=== PATIENT | female | born 1970 | race Caucasian/White ===

== ENCOUNTER 2020-03-17 18:38 | Emergency (ER) | payer SELFPAY ==
[2020-03-17 18:41] VITALS: BP 155/96; PULSE 94; RESP 18; TEMP 36.2; O2SAT 100; BMI 32.3
--- NOTE | 2020-03-17 18:56 | W.ED.FEMALGU ---
Documented by User: GALI Rios 03/17/20 18:57 HPI - Female Genitourinary General: Chief complaint: Urogenital-Female Stated complaint: General Medical Time Seen by Provider: 03/17/20 18:46 History of Present Illness: HPI Narrative: Patient complains about the bilateral flank pain been going on since early this morning. Has been nauseous and vomiting she said over the last couple months. She has had pressure down in her vaginal area which really started a while ago and now gone and now she is having urinary frequency. MD elicited complaint: UTI and flank pain Onset (ago): day(s) Severity scale (1-10): 6 Quality of pain: sharp Consistency: constant and progressively worsening Vaginal discharge: none Vaginal bleeding: none Urinary symptoms: Foul Smelling Urine, Frequency and Urgency Associated symptoms: Reports nausea; Deny headache(s) Treatment prior to arrival: none Review of Systems Const: Denies: fever(s), chills or body aches Eyes: Denies: change in vision or blurry vision ENMT: Denies: throat pain or nasal congestion Card: Denies: chest pain or dyspnea on exertion Resp: Denies: dyspnea, productive cough or non-productive cough GI: Reports: nausea Musc: Denies: extremity pain Skin/Breast: Denies: rash Neuro: Denies: headache(s) Psych: Denies: anxiety or depression Braden/Lymph: Denies: easy bruising Physical Exam Const: COMMON NORMALS: no acute distress, average body habitus and patient oriented x3 HENMT: COMMON NORMALS: normocephalic HEAD & SCALP: normal to inspection and normocephalic FACE & SINUS: normal facial exam Eye: COMMON NORMALS: conjunctivae normal GENERAL EYE: appearance normal, both eyes and all related structures CONJUNCTIVA: Yes conjunctivae normal Neck/C-Spine: COMMON NORMALS: no JVD Chest: COMMONS NORMALS: normal inspection of the chest Resp: COMMON NORMALS: normal respiratory effort and clear to auscultation bilaterally AUSCULTATION: clear to auscultation bilaterally Cardio: COMMON NORMALS: no JVD, regular rate and regular rhythm RATE: regular rate RHYTHM: regular rhythm GI: COMMON NORMALS: Normal to inspection, nondistended, normoactive bowel sounds present OTHER: Bilateral flank pain Extremity: COMMON NORMALS: normal to inspection and full ROM Neuro: COMMON NORMALS: patient oriented x3 Course Vital Signs: Vital signs: Vital Signs Temperature 97.2 F L 03/17/20 18:41 Pulse Rate 94 03/17/20 18:41 Respiratory Rate 18 03/17/20 18:41 Blood Pressure 155/96 03/17/20 18:41 Pulse Oximetry 100 03/17/20 18:41 Discharge Plan Discharge Prescriptions: No Action lisinopril 20 mg Tablet 20 mg PO BID RF: 0 ibuprofen 200 mg Tablet 800 mg PO PRN RF: 0 Black Cohosh Hot Flash 2 tab PO DAILY RF: 0 Coding Level of Care Code ED Dry Wall 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 for [facility] Fwd Exam Comprehensive Documented by User: Xenia Matamoros 03/17/20 19:18 HPI - Female Genitourinary General: Chief complaint: Urogenital-Female Stated complaint: General Medical Time Seen by Provider: 03/17/20 18:46 Physical Exam Neuro: ANGELINE COMA SCALE: document GCS findings Course Vital Signs: Vital signs: Vital Signs Temperature 97.2 F L 03/17/20 18:41 Pulse Rate 94 03/17/20 18:41 Respiratory Rate 18 03/17/20 18:41 Blood Pressure 155/96 03/17/20 18:41 Pulse Oximetry 100 03/17/20 18:41 Discharge Plan Discharge Prescriptions: No Action lisinopril 20 mg Tablet 20 mg PO BID RF: 0 ibuprofen 200 mg Tablet 800 mg PO PRN RF: 0 Black Cohosh Hot Flash 2 tab PO DAILY RF: 0 Coding Level of Care Code ED Dry Wall Plasterer for g Fwd Exam Comprehensive
[2020-03-17 19:22] LABS: Urine Appearance Hazy (CLEAR); Urine Color Dark Yellow (Yellow); pH Urine 5 (5-7)
[2020-03-17 19:23] LABS: Add Urine Microscopic? YES; Bilirubin Urine Neg (Negative); Blood Urine 3+ (Negative); Glucose Urine UA Norm (Normal); Ketones Urine Negative (Negative); Leukocyte Esterase Urine Negative (Negative); Nitrate Urine Negative (Negative); Protein Urine Neg (Negative); Urobilinogen Urine Norm (Negative)
[2020-03-17] MEDS: ondansetron 2 mg/ML SDV 2 mL 4 MG IVP (19:39)
[2020-03-17] MEDS: sodium chloride 0.9% 1,000 ML 999 ML IV ×2 (19:40→20:43)
[2020-03-17] MEDS: phenazopyridine 100 mg Tablet 200 MG PO (19:40)
[2020-03-17 19:42] VITALS: BP 123/97; PULSE 76; RESP 18; O2SAT 99
[2020-03-17 19:51] LABS: Add Urine Culture? No; Bacteria Urine 1+ /hpf; Mucus Urine 3+ /hpf; Squamous Epithelial Cell Urine 25-40 /hpf (0-5)
[2020-03-17 20:01] LABS: Basophils # 0.1 10^3/uL (0.0-0.1); Basophils % 0.9 %; Eosinophils # 0.2 10^3/uL (0.0-0.8); Eosinophils % 1.6 %; Hematocrit 40.8 % (37.0-47.0); Hemoglobin 13.4 g/dL (11.5-15.3); Lymphocytes # 3.3 10^3/uL (0.8-4.8); Lymphocytes % 30.3 %; Mean Corpuscular HGB Conc 32.8 g/dL (30.0-36.0); Mean Corpuscular Hemoglobin 28.2 pg (28.0-34.0); Mean Corpuscular Volume 85.7 fL (81-99); Monocytes # 0.6 10^3/uL (0.2-0.9); Monocytes % 5.5 %; Neutrophils # 6.63 10^3/uL (1.8-7.7); Neutrophils % 61.3 %; Nucleated Red Blood Cells % 0 %; Platelet Count 318 10^3/cmm (130-400); Red Blood Count 4.76 10^6/uL (4.1-5.3); Red Cell Distribution Width 14.2 % (12.1-15.1); White Blood Count 10.8 10^3/uL (4.0-10.0)
[2020-03-17 20:15] LABS: Alanine Aminotransferase 11 U/L (0-33); Alkaline Phosphatase 95 IU/L (35-105); Anion Gap 13.6 (5-19); Aspartate Amino Transferase 11 U/L (0-32); Blood Urea Nitrogen 13 mg/dL (6-20); Calcium 9.2 mg/dL (8.5-10.5); Carbon Dioxide 24 mmol/L (22-29); Chloride 108 mmol/L (98-107); Glomerular Filtration Rate 66.5 mL/min (90-130); Glucose 117 mg/dL (65-115); Lipase 22 U/L (13-60); Osmolality Calculated 295 mOsm/kg (285-295); Potassium 3.6 mmol/L (3.5-5.1); Sodium 142 mmol/L (136-145); Total Bilirubin 0.2 mg/dL (0.15-1.2)
--- NOTE | 2020-03-17 20:37 | CTR_ITS ---
PROCEDURE INFORMATION: Exam: CT Abdomen And Pelvis Without Contrast Exam date and time: 03/17/2020 8:58 PM Age: 49 years old Clinical indication: Abdominal pain; Prior surgery; Surgery type: Hernia, hyst; Additional info: Flank pain TECHNIQUE: Imaging protocol: Computed tomography of the abdomen and pelvis without contrast. Radiation optimization: All CT scans at this facility use at least one of these dose optimization techniques: automated exposure control; mA and/or kV adjustment per patient size (includes targeted exams where dose is matched to clinical indication); or iterative reconstruction. COMPARISON: No relevant prior studies available. RADIATION DOSE METRICS: Total DLP (mGy-cm): 1746.01 FINDINGS: Lungs: Limited assessment of the lung bases fails to reveal evidence for active cardiopulmonary process. Liver: Unremarkable. No mass. Gallbladder and bile ducts: Gallbladder is contracted. No visible cholelithiasis. Pancreas: Normal. No ductal dilation. Spleen: Normal. No splenomegaly. Adrenal glands: Normal. No mass. Kidneys and ureters: No visible hydronephrosis, hydroureter, ureterolithiasis, nephrolithiasis, or nephrocalcinosis. Stomach and bowel: Diverticulosis coli without visible evidence for acute diverticulitis. Nonobstructive bowel pattern. No visible adynamic or reactive ileus. Appendix: The appendix is visualized and appears noninflamed. Intraperitoneal space: No visible evidence of mesenteric lymphadenitis or active mesenteritis/panniculitis. Vasculature: Unremarkable. No abdominal aortic aneurysm. Lymph nodes: No current visible evidence of active mesenteric or retroperitoneal lymphadenopathy. Urinary bladder: Unremarkable as visualized. Reproductive: Status post hysterectomy. Bones/joints: No visible active or acute osseous pathology. Mild degenerative disease of the spine. Facet arthrosis. Limbus vertebra L5. Soft tissues: Small ventral hernia containing fat only. Other findings: Obesity. CT/CT kidney stone 64812 IMPRESSION: 1. Currently no visible evidence of acute abdominal or pelvic pathologic process. 2. No visible hydronephrosis, hydroureter, ureterolithiasis, nephrolithiasis, or nephrocalcinosis. 3. Diverticulosis coli without evidence for acute diverticulitis. 4. The appendix is visualized and appears noninflamed. Radiation Dose CTDIVOL = (mGy): DLP = 1746.01 (mGy-cm)
[2020-03-17] MEDS: HYDROcodone-acetaminophen 7.5-325 mg Tablet 1 TAB PO (20:43)
[2020-03-17 20:44] VITALS: BP 146/97; PULSE 78; RESP 20; O2SAT 99
[2020-03-17 21:41] VITALS: BP 134/86; PULSE 74; RESP 18; O2SAT 97
[2020-03-17] MEDS: nitrofurantoin SR (BID) 100 mg Capsule PO (21:55)
== END 2020-03-17 22:03 | disposition home or self-care (01) ==
PROVIDERS: Emergency Provider Nurse Practitioner Family
DX: R10.9 Unspecified abdominal pain (principal)
CPT/HCPCS: 12345; 74176; 80053; 81001; 83690; 85025; 96361; 96374; 96375; 99283; J2405; J7030

== ENCOUNTER 2020-09-15 02:00 | Emergency (ER) | payer SELFPAY ==
[2020-09-15 02:02] VITALS: BP 182/118; PULSE 86; RESP 20; TEMP 36.8; O2SAT 97; BMI 31.4
--- NOTE | 2020-09-15 02:11 | ED_ITS ---
HPI - Animal Bite General: Chief Complaint: Animal Bite Stated Complaint: Tick Bite Time Seen by Provider: 09/15/20 02:05 Source: patient Mode of arrival: ambulatory Limitations: no limitations History of Present Illness: HPI narrative: 50-year-old female states she had a tick bite to her left hand 3 days ago. States she pulled the tick off and had increased swelling and pain. She denies any fevers has had some slight body aches. Denies any worsening proving factors. Associated symptoms: Deny chills, fever(s) or headache(s) Review of Systems Const: Denies: fever(s), chills, body aches or change in appetite Eyes: Denies: blurry vision or eye discomfort ENMT: Denies: throat pain or dental pain Card: Denies: chest pain Resp: Denies: dyspnea GI: Denies: abdominal pain, nausea, vomiting or diarrhea : Denies: dysuria Musc: Denies: neck pain or back pain Skin/Breast: Denies: rash Neuro: Denies: headache(s) Psych: Denies: depression Braden/Lymph: Denies: easy bruising All/Imm: Denies: urticaria Physical Exam Const: COMMON NORMALS: no acute distress, patient oriented x3 and healthy appearing HENMT: COMMON NORMALS: normocephalic and atraumatic HEAD & SCALP: normocephalic and atraumatic Eye: COMMON NORMALS: Equal, round and reactive pupils present and EOMs intact bilaterally PUPIL: Yes Equal, round and reactive pupils present Neck/C-Spine: COMMON NORMALS: full ROM and supple Chest: COMMONS NORMALS: normal inspection of the chest and normal palpation of entire chest wall Resp: COMMON NORMALS: normal respiratory effort, No retractions, No use of accessory muscles and clear to auscultation bilaterally AUSCULTATION: clear to auscultation bilaterally Cardio: COMMON NORMALS: regular rate, regular rhythm and No murmurs present (Cardio) RATE: regular rate RHYTHM: regular rhythm GI: COMMON NORMALS: Normal to inspection, nondistended, normoactive bowel sounds present, Soft to palpation, non-tender and no masses PALPATION: Yes Soft to palpation Extremity: COMMON NORMALS: normal to inspection and full ROM Neuro: COMMON NORMALS: patient oriented x3, moves all extremities and no focal motor deficits Psych: COMMON NORMALS: mental status grossly normal, Normal thought process present and cooperative THOUGHT PROCESS: Normal thought process present Skin: COMMON NORMALS: no rashes or lesions noted and no wounds NARRATIVE SKIN EXAM: Tick bite noted to left hand at the base of the index finger with slight erythema around it no abscess formation GENERAL SKIN EXAM: no rashes or lesions noted Course Vital Signs: Vital signs: Vital Signs Temperature 98.3 F 09/15/20 02:02 Pulse Rate 86 09/15/20 02:02 Respiratory Rate 20 H 09/15/20 02:02 Blood Pressure 182/118 09/15/20 02:02 Pulse Oximetry 97 09/15/20 02:02 MDM - Animal Bite MDM Narrative: Medical decision making narrative: Patient presents with a tick bite. She has had some body aches and swelling around the area. We will place her on doxycycline and get a tick panel. She is to follow-up PCP and return if worsening. Discharge Plan Discharge Patient Disposition: Home Clinical Impression: Tick bite Qualifiers: Encounter type: initial encounter Qualified Code(s): W57.XXXA - Bitten or stung by nonvenomous insect and other nonvenomous arthropods, initial encounter Condition: Stable Prescriptions: New doxycycline hyclate 100 mg capsule 100 mg PO BID 10 Days Qty: 20 RF: 0 naproxen [Naprosyn] 500 mg tablet 500 mg PO BID PRN (Reason: pain) Qty: 20 RF: 0 No Action lisinopril 20 mg Tablet 20 mg PO BID RF: 0 ibuprofen 200 mg Tablet 800 mg PO PRN RF: 0 Black Cohosh Hot Flash 2 tab PO DAILY RF: 0 tramadol 50 mg tablet 50 mg PO Q8H PRN (Reason: pain) Qty: 7 RF: 0 Discharge Orders: Discharge ED (Routine); Ordered 09/15/20 Ordered By: Misty Elkins Discharge Diet: Advance as tolerated Discharge Activity: Resume usual activity Patient Instructions: Tick Bite (ED) Coding Level of Care Code ED Drive Thru Order Taker for [facility] Cantu
[2020-09-15] MEDS: HYDROcodone-acetaminophen 5-325 mg Tablet 1 TAB PO (02:15)
[2020-09-15] MEDS: doxycycline 100 mg Tablet PO (02:15)
[2020-09-15 02:24] VITALS: BP 131/98; PULSE 82; RESP 18; O2SAT 98
[2020-09-16 13:03] LABS: Lyme AB Screen <0.90 index
[2020-09-22 16:52] LABS: E. Chaffeensis AB IGG <1:64; E. Chaffeensis AB IGM <1:20; RMSF IGG NOT DETECTED; RMSF IGM NOT DETECTED
== END 2020-09-15 02:25 | disposition home or self-care (01) ==
PROVIDERS: Emergency Provider Emergency Medicine
DX: S60.562A Insect bite (nonvenomous) of left hand, initial encounter (principal); W57.XXXA Bitten or stung by nonvenomous insect and other nonvenomous arthropods, initial encounter
CPT/HCPCS: 86618; 86666; 86757; 99283

== ENCOUNTER 2020-11-18 18:25 | Emergency (ER) | payer SELFPAY ==
--- NOTE | 2020-11-18 18:29 | ECG_ITS ---
[facility] Test Date: 2020-11-18 Pat Name: Tiffany Bragg Department: Room: Gender: Female Communications Agent: : 1970 Requested By: Juan Rodriguez Order Number: [id number] Nila MD: Bo Giles M.D. Measurements Intervals [place] Rate: 74 P: 7 PA: 146 QRS: -6 QRSD: 81 T: 122 QT: 415 QTc: 461 Interpretive Statements SINUS RHYTHM MODERATE T-WAVE ABNORMALITY, CONSIDER LATERAL ISCHEMIA [-0.1+ mV T WAVE IN I/aVL/V5/V6] No previous ECG available for comparison Electronically Signed On 11-20-2020 12:20:25 CDT by Bo Giles M.D. [email or web address]/[id number] f
[2020-11-18 18:30] VITALS: BP 134/83; PULSE 75; RESP 18; TEMP 37.1; O2SAT 97; BMI 33.3
[2020-11-18 19:03] LABS: Basophils # 0.1 10^3/uL (0.0-0.1); Basophils % 0.6 %; Eosinophils % 0.2 %; Hematocrit 39.9 % (37.0-47.0); Hemoglobin 12.5 g/dL (11.5-15.3); Lymphocytes % 22.4 %; Mean Corpuscular HGB Conc 31.3 g/dL (30.0-36.0); Mean Corpuscular Hemoglobin 27.7 pg (28.0-34.0); Mean Corpuscular Volume 88.5 fL (81-99); Mean Platelet Volume 10.9 fL (7.4-10.4); Monocytes # 0.8 10^3/uL (0.2-0.9); Neutrophils # 6.04 10^3/uL (1.8-7.7); Neutrophils % 67.6 %; Nucleated Red Blood Cells % 0 %; Platelet Count 271 10^3/cmm (130-400); Red Blood Count 4.51 10^6/uL (4.1-5.3); Red Cell Distribution Width 15.7 % (12.1-15.1); White Blood Count 8.9 10^3/uL (4.0-10.0)
[2020-11-18 19:21] LABS: Troponin(5th) Baseline 76 ng/L (0-10)
[2020-11-18 19:23] LABS: Alanine Aminotransferase 14 U/L (0-33); Albumin Level 3.5 g/dL (3.5-5.2); Alkaline Phosphatase 86 IU/L (35-105); Aspartate Amino Transferase 20 U/L (0-32); Blood Urea Nitrogen 13 mg/dL (6-20); Calcium 8.1 mg/dL (8.5-10.5); Carbon Dioxide 20 mmol/L (22-29); Chloride 107 mmol/L (98-107); Globulin 3.5 g/dL (1.3-4.6); Glomerular Filtration Rate 88.6 mL/min (90-130); Glucose 90 mg/dL (65-115); Osmolality Calculated 288 mOsm/kg (285-295); Sodium 139 mmol/L (136-145); Total Bilirubin 0.2 mg/dL (0.15-1.2)
== END 2020-11-18 20:14 ==
LOC: ER 18:37
PROVIDERS: Nurse Practitioner Family; Emergency Provider Emergency Medicine
DX: Z53.21 Procedure and treatment not carried out due to patient leaving prior to being seen by health care provider (principal)
CPT/HCPCS: 36415; 80053; 84484; 85025; 93005

== ENCOUNTER 2021-12-10 02:59 | Emergency (ER) | payer MEDICAID, SELFPAY ==
[2021-12-10 03:04] VITALS: BP 187/103; PULSE 68; RESP 18; TEMP 36.8; O2SAT 98; BMI 29.2
[2021-12-10 03:48] VITALS: BP 187/103; PULSE 68; RESP 18; TEMP 36.8; O2SAT 98
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
== END 2021-12-10 04:09 | disposition home or self-care (01) ==
PROVIDERS: Emergency Provider Emergency Medicine
DX: Z03.89 Encounter for observation for other suspected diseases and conditions ruled out (principal)
CPT/HCPCS: 99283

== ENCOUNTER → 2023-06-27 14:14 | Outpatient (BNVA) | payer MEDICAID, SELFPAY | PROVIDERS: Visit Provider Emergency Medicine | DX: R07.9 Chest pain, unspecified (principal) | CPT/HCPCS: 93005 ==

== ENCOUNTER 2024-02-28 10:42 | Emergency (ER) | payer MEDICAID, SELFPAY ==
--- NOTE | 2024-02-28 10:46 | ECG_ITS ---
[facility] Date: 2024-02-28 Pat Name: Tiffany Bragg Department: Room: Gender: Female Mason Helper: : 1970 Requested By: Misty Elkins Order Number: [id number] Nila MD: Carmela Galvan M.D. Measurements Intervals [place] Rate: 65 P: 0 MO: 169 QRS: 32 QRSD: 73 T: 61 QT: 420 QTc: 437 Interpretive Statements SINUS RHYTHM Compared to ECG 11/18/2020 18:47:07 T-wave abnormality no longer present Possible ischemia no longer present Electronically Signed On 02-29-2024 15:57:21 FISCAL TECHNICIAN by Carmela Galvan M.D. [id number] f
[2024-02-28 10:50] VITALS: BP 116/110; PULSE 63; RESP 17; TEMP 36.8; O2SAT 99; BMI 29.8
== END 2024-02-28 11:15 | disposition left against medical advice (07) ==
PROVIDERS: Emergency Provider Family Medicine; PCP Family Medicine
DX: Z53.21 Procedure and treatment not carried out due to patient leaving prior to being seen by health care provider (principal); R07.89 Other chest pain
CPT/HCPCS: 93005

== ENCOUNTER 2024-03-03 07:14 | Emergency (ER) | payer MEDICAID, SELFPAY ==
[2024-03-03 07:19] VITALS: BP 186/108; PULSE 77; RESP 18; TEMP 36.7; O2SAT 99; BMI 28.1
--- NOTE | 2024-03-03 07:30 | ECG_ITS ---
[facility] Test Date: 2024-03-03 Pat Name: Tiffany Bragg Department: Room: Gender: Female Undergraduate Internship: : 1970 Requested By: Tan Avila Order Number: [id number] Reading MD: NIRMAL MENA Measurements Intervals [place] Rate: 70 P: -7 NM: 166 QRS: -6 QRSD: 72 T: 32 QT: 391 QTc: 424 Interpretive Statements SINUS RHYTHM MODERATE VOLTAGE CRITERIA FOR LVH, CONSIDER NORMAL VARIANT [MEETS CRITERIA IN ONE OF: R(aVL), S(V1), R(V5), R(V5/V6)+S(V1)] Compared to ECG 02/28/2024 10:46:37 No significant changes Electronically Signed On 03-04-2024 17:34:38 GINSENG FARMER by NIRMAL MENA [id number]
--- NOTE | 2024-03-03 07:41 | W.ED.GENADLT ---
HPI - General Adult General: Chief complaint: General Medical Stated complaint: BP high, blurred vison head vomiting Time Seen by Provider: 03/03/24 07:21 History of Present Illness: 53-year-old female presents emergency room with elevated blood pressure. She states she generally feels like crap she has a headache. She states she has had high blood pressure for several months she has been taking lisinopril and clonidine but has difficult time keeping them down is not controlling her blood pressure. She vomited last night after she took her dose she has not taken another dose since then. Patient states she had COVID 4 years ago and had not heart attack while she was here in this hospital but there is no evidence of records reflecting that on review of her chart. I cannot find a angiogram or hospitalization for chest pain rule out or heart attack. Associated symptoms: Deny chest pain, dyspnea or rash Related Data Home Medications Medication Instructions Recorded Confirmed lisinopril 20 mg tablet 20 mg PO BID 03/17/20 03/03/24 albuterol sulfate 90 mcg/actuation 2 puff inhalation Q6H PRN 03/03/24 03/03/24 aerosol inhaler Shortness Of Breath Or Wheezing Previous Rx's Medication Instructions Recorded amlodipine 5 mg tablet 5 mg PO DAILY #30 tabs 03/03/24 metoprolol succinate 25 mg 12.5 mg (1/2 x 25 mg) PO DAILY #15 03/03/24 tablet,extended release 24 hr tabs (Toprol XL) Allergies Allergy/AdvReac Type Severity Reaction Status Date / Time cephalexin [From Keflex] Allergy Unknown Verified 02/28/24 10:54 Penicillins Allergy ALGY-Anaphy Verified 02/28/24 10:54 laxis Sulfa (Sulfonamide Allergy ALGY-Anaphy Verified 02/28/24 10:54 Antibiotics) laxis sulfamethoxazole Allergy Unknown Verified 02/28/24 10:54 [From Bactrim] trimethoprim [From Bactrim] Allergy Unknown Verified 02/28/24 10:54 Review of Systems Const: Denies: fever(s) or chills Card: Denies: chest pain Resp: Denies: dyspnea GI: Denies: abdominal pain : Denies: dysuria, urinary frequency or urinary urgency Musc: Denies: neck pain or back pain Skin/Breast: Denies: rash PFSH ED PFSH: Medical History (Updated 03/03/24 @ 11:51 by Tan Flynn DO) HTN (hypertension) Psychiatric care Social History Smoking and tobacco/nicotine status: current every day tobacco/nicotine user Physical Exam Const: GENERAL APPEARANCE: cooperative ORIENTATION/CONSCIOUSNESS: Yes awake, Yes oriented to person, Yes oriented to place and Yes oriented to time HENMT: COMMON NORMALS: normocephalic, atraumatic and hearing grossly normal bilaterally HEAD & SCALP: normocephalic and atraumatic Resp: COMMON NORMALS: normal respiratory effort, No retractions, No use of accessory muscles and clear to auscultation bilaterally AUSCULTATION: clear to auscultation bilaterally Cardio: COMMON NORMALS: regular rate, regular rhythm and No murmurs present (Cardio) RATE: regular rate RHYTHM: regular rhythm GI: COMMON NORMALS: Soft to palpation and No hepatosplenomegaly present AUSCULTATION: Yes normoactive bowel sounds PALPATION: Yes Soft to palpation, No Tenderness to palpation present (GI), No Guarding due to palpation present (GI) and Yes No hepatosplenomegaly present Extremity: COMMON NORMALS: normal to inspection, capillary refill normal, no clubbing, cyanosis or edema, no calf tenderness and no pedal edema Neuro: SENSORIUM/ORIENTATION: Yes oriented to person, Yes oriented to place and Yes oriented to time Skin: COMMON NORMALS: no rashes or lesions noted GENERAL SKIN EXAM: no rashes or lesions noted Course Vital Signs: Vital signs: Vital Signs Temperature 98.1 F 03/03/24 07:19 Pulse Rate 71 03/03/24 11:51 Respiratory Rate 18 03/03/24 07:19 Blood Pressure 128/92 03/03/24 11:51 Pulse Oximetry 98 03/03/24 11:51 Oxygen Delivery Me thod Room Air 03/03/24 07:58 [facility] - General Adult Medical Decision Making Cardiac enzymes EKG is unremarkable blood pressure improved with medications given was discharged home on amlodipine 5 mg daily Toprol-XL 12.5 daily continue lisinopril follow-up with his primary care to reevaluate blood pressure within the next 5 to 7 days Medical Records I reviewed the patient's medical records. Lab Data I reviewed the patient's lab results. 03/03/24 07:34 03/03/24 07:34 Radiology Impressions Chest X-Ray 03/03/24 11:39 IMPRESSION: 1. No acute cardiopulmonary finding. Laboratory Results WBC 11.41 10^3/uL (3.29-11.43) 03/03/24 07:34 RBC 4.88 10^6/uL (3.85-5.65) 03/03/24 07:34 Hgb 14.40 g/dL (11.27-16.99) 03/03/24 07:34 Hct 44.2 % (36-47) 03/03/24 07:34 MCV 90.6 fl (85-98) 03/03/24 07:34 MCH 29.5 pg (27-33) 03/03/24 07:34 MCHC 32.6 g/dL (30-55) 03/03/24 07:34 RDW 15.2 % (12.1-15.1) H 03/03/24 07:34 Plt Count 292 10^3/cmm (157-399) 03/03/24 07:34 MPV 9.6 fL (7.4-10.4) 03/03/24 07:34 Neut % (Auto) 63.2 % 03/03/24 07:34 Lymph % (Auto) 30.0 % 03/03/24 07:34 [place] % (Auto) 5.3 % 03/03/24 07:34 Eos % (Auto) 0.6 % 03/03/24 07:34 Baso % (Auto) 0.5 % 03/03/24 07:34 Neut # (Auto) 7.22 10^3/uL (1.8-7.7) 03/03/24 07:34 Lymph # (Auto) 3.4 10^3/uL (0.8-4.8) 03/03/24 07:34 [place] # (Auto) 0.6 10^3/uL (0.2-0.9) 03/03/24 07:34 Eos # (Auto) 0.1 10^3/uL (0.0-0.8) 03/03/24 07:34 Baso # (Auto) 0.1 10^3/uL (0.0-0.1) 03/03/24 07:34 Nucleated RBC % (auto) 0 % 03/03/24 07:34 Nucleated RBCs # 0.0 /100WBC 03/03/24 07:34 Sodium 141 mmol/L (136-145) 03/03/24 07:34 Potassium 4.0 mmol/L (3.5-5.1) 03/03/24 07:34 Chloride 106 mmol/L (98-107) 03/03/24 07:34 Carbon Dioxide 23 mmol/L (22-29) 03/03/24 07:34 Anion Gap 16.0 (5-19) 03/03/24 07:34 BUN 23 mg/dL (6-20) H 03/03/24 07:34 Creatinine 0.9 mg/dL (0.5-0.9) 03/03/24 07:34 GFR Calculation 65.5 mL/min (90-130) L 03/03/24 07:34 Glucose 104 mg/dL (65-115) 03/03/24 07:34 Calculated Osmolality 296 mOsm/kg (285-295) H 03/03/24 07:34 Calcium 8.7 mg/dL (8.5-10.5) 03/03/24 07:34 Total Bilirubin 0.2 mg/dL (0.15-1.2) 03/03/24 07:34 AST 17 U/L (0-32) 03/03/24 07:34 ALT 15 U/L (0-33) 03/03/24 07:34 Alkaline Phosphatase 107 U/L (35-105) H 03/03/24 07:34 Troponin T Baseline 9 ng/L (0-10) 03/03/24 07:34 Troponin T 120 Minute 8.07 ng/L (0-10) 03/03/24 09:39 Delta Troponin T -0.93 ABS# (0-10) L 03/03/24 09:39 Total Protein 7.4 g/dL (6.6-8.7) 03/03/24 07:34 Albumin 4.5 g/dL (3.5-5.2) 03/03/24 07:34 Globulin 2.9 g/dL (1.3-4.6) 03/03/24 07:34 All radiology interpretation(s) finalized by discharge Discharge Plan Discharge Patient Disposition: Home Clinical Impression: HTN (hypertension) Condition: Stable Prescriptions: New metoprolol succinate [Toprol XL] 25 mg tablet extended release 24 hr 12.5 mg PO DAILY Qty: 15 0RF amlodipine 5 mg tablet 5 mg PO DAILY Qty: 30 0RF No Action lisinopril 20 mg Tablet 20 mg PO BID albuterol sulfate 90 mcg/actuation HFA aerosol inhaler 2 puff inhalation Q6H PRN (Reason: Shortness Of Breath Or Wheezing) Discharge Orders: Discharge ED (Routine); Ordered 03/03/24 Ordered By: Tan Flynn Referrals: Matthew Ashby MD [Primary Care Provider] - Discharge Diet: Cardiac Discharge Activity: Increase activity as tolerated Patient Instructions: Chronic Hypertension (ED), Opioid Safety, Pain Management Activity Restrictions/Additional Instructions: Thank you for choosing [facility] for your healthcare needs today. It is very important that you follow up as instructed or that you return to the Emergency Department should you have concerns or if your condition changes or worsens in any way. You were seen in the emergency room with elevated blood pressure and reported generally not feeling well. Your EKG did not show any changes your cardiac enzymes and laboratory tests did not show any acute coronary syndrome. Recommend you continue the lisinopril 20 mg twice a day start metoprolol 12-1/2 mg once daily and amlodipine 5 mg daily. You should follow-up with your doctor within the next week to reevaluate your blood pressure. Coding Level of Care Code ED School Boat Driver for Rafa Cantu
[2024-03-03] MEDS: hyDRALAzine 20 mg/mL INJ 1 mL 10 MG IVP (07:43)
[2024-03-03] MEDS: labetalol 5 mg/mL SDV 20mL 10 MG IVP (07:44)
[2024-03-03 07:46] LABS: Basophils # 0.1 10^3/uL (0.0-0.1); Basophils % 0.5 %; Eosinophils # 0.1 10^3/uL (0.0-0.8); Eosinophils % 0.6 %; Hematocrit 44.2 % (36-47); Lymphocytes # 3.4 10^3/uL (0.8-4.8); Mean Corpuscular HGB Conc 32.6 g/dL (30-55); Mean Corpuscular Hemoglobin 29.5 pg (27-33); Mean Corpuscular Volume 90.6 fl (85-98); Mean Platelet Volume 9.6 fL (7.4-10.4); Monocytes # 0.6 10^3/uL (0.2-0.9); Monocytes % 5.3 %; Neutrophils # 7.22 10^3/uL (1.8-7.7); Neutrophils % 63.2 %; Nucleated Red Blood Cells % 0 %; Platelet Count 292 10^3/cmm (157-399); Red Blood Count 4.88 10^6/uL (3.85-5.65); Red Cell Distribution Width 15.2 % (12.1-15.1); White Blood Count 11.41 10^3/uL (3.29-11.43)
[2024-03-03 07:58] VITALS: BP 142/62; PULSE 81; O2SAT 99
[2024-03-03 08:03] LABS: Alanine Aminotransferase 15 U/L (0-33); Albumin Level 4.5 g/dL (3.5-5.2); Alkaline Phosphatase 107 U/L (35-105); Aspartate Amino Transferase 17 U/L (0-32); Blood Urea Nitrogen 23 mg/dL (6-20); Calcium 8.7 mg/dL (8.5-10.5); Carbon Dioxide 23 mmol/L (22-29); Chloride 106 mmol/L (98-107); Creatinine Clr Calc Pharmacy 82.0594; Globulin 2.9 g/dL (1.3-4.6); Glomerular Filtration Rate 65.5 mL/min (90-130); Glucose 104 mg/dL (65-115); Osmolality Calculated 296 mOsm/kg (285-295); Sodium 141 mmol/L (136-145); Total Bilirubin 0.2 mg/dL (0.15-1.2); Total Protein 7.4 g/dL (6.6-8.7); Troponin(5th) Baseline 9 ng/L (0-10)
--- NOTE | 2024-03-03 08:06 | PC.PHAR ---
Pt states takes Clonidine but does not know what strength or what pharmacy in [place] that she picked it up. Pt states can't go to court this morning until high blood pressure and altered feeling goes away.
--- NOTE | 2024-03-03 09:30 | ECG_ITS ---
[facility] Test Date: 2024-03-03 Pat Name: Tiffany Bragg Department: Room: Gender: Female Personal Property Appraiser: : 1970 Requested By: Tan Avila Order Number: [id number] Reading MD: NIRMAL MENA Measurements Intervals [place] Rate: 68 P: 78 MI: 177 QRS: 12 QRSD: 77 T: 44 QT: 419 QTc: 447 Interpretive Statements SINUS RHYTHM ANTEROSEPTAL MYOCARDIAL INFARCTION , OF INDETERMINATE AGE [40+ ms Q WAVE IN V1-V4] Compared to ECG 03/03/2024 07:24:54 Myocardial infarct finding now present Electronically Signed On 03-04-2024 18:15:22 CORN SHELLER OPERATOR by NIRMAL MENA [email or web address]
[2024-03-03 10:27] LABS: Troponin 5 2HR 8.07 ng/L (0-10)
[2024-03-03 10:29] LABS: Troponin 5 2HR Delta -0.93 ABS# (0-10)
[2024-03-03 10:30] VITALS: BP 141/74
--- NOTE | 2024-03-03 11:39 | XR_ITS ---
WS: [id number] Exam: XR chest 1V portable [id number] Date/Time of Exam: 03/03/2024 11:39 AM Reason For Exam: elevated bp No priors. The lungs are clear and fully expanded. Normal cardiomediastinal silhouette. Bony structures are inta ct. No pleural effusion. XR/XR chest 1V portable [id number] IMPRESSION: 1. No acute cardiopulmonary finding.
[2024-03-03 11:51] VITALS: BP 128/92; PULSE 71; O2SAT 98
== END 2024-03-03 12:01 | disposition home or self-care (01) ==
PROVIDERS: Emergency Provider Family Medicine; PCP Family Medicine
DX: I10 Essential (primary) hypertension (principal); Z72.0 Tobacco use
CPT/HCPCS: 36415; 71045; 80053; 84484; 85025; 93005; 96374; 96375; 99285; J0360; J3490

== ENCOUNTER 2025-02-10 22:25 | Emergency (ER) | payer SELFPAY ==
[2025-02-10 22:29] VITALS: BP 176/111; PULSE 71; RESP 18; TEMP 36.4; O2SAT 99; BMI 26.9
--- OUTSIDE RECORDS SUMMARY | 2025-02-10 22:29 | XMS_ITS | Encounter Summary ---
Author Organization [facility] Address [address] [place] [address] Care Team Providers Care Carbon Blocks Press Operator Name Role Phone Matthew Ashby MD Primary Care Provider [phone] Encounter Details Date Type Department Care Team (Late st Contact Info) Description 02/09/2025 External Device Data [facility] ABSTRACTION Provider, Abstract NO ADDRESS ON FILE Social History Tobacco Use Types Packs/Day Years Used Date Smoking Tobacco: Every Day Cigarettes 1 36.8 Started: 1988 Smokeless Tobacco: Never Alcohol Use Standard Drinks/Week Comments Yes 0 (1 standard drink = 0.6 oz pur e alcohol) Feeling Safe Answer Date Recorded Are you in a relationship wi th someone who hurts you emotionally and/or physically? No 06/27/2023 Comments No Sex and Gender Information Value Date Recorded Sex Assigned at Not on file Legal Sex Female 3:16 AM MANAGER PROGRESSIVE CARE Gender Identity Not on file Sexual Orientation Not on file documented as of this encounter Plan of Treatment Not on file documented as of this encounter Goals Goal Patient Goal Type Associated Problems Recent Progress Patient-Stated? Author HYPERTENSIO N CARE PLAN GOAL Care Plan ERAN MYC HYPERTENSION CARE PLAN PROBLEM No Matthew Ashby MD documented as of this encounter Visit Diagnoses Not on filedocumented in this encounter Additional Health Concerns Active Problems Noted Date Diagnosed Date ERAN MYC HYPERTENSION CARE PLAN PROBLEM 4 documented as of this encounter Care Teams Carbon Blocks Press Operator Relationship Specialty Start Date End Date Matthew Ashby MD [address] [place] [phone] PCP - General Family Practice 07/05/23 documented as of this encounter
--- OUTSIDE RECORDS SUMMARY | 2025-02-10 22:29 | XMS_ITS | Clinical Summary ---
Author Organization [facility] Address [address] Harris: Epic Prelude ADT SHANNAN RODRIGUEZ [id number] Care Team Providers Care Commercial Loan Assistant Name Role Phone Matthew Ashby MD Primary Care Provider [phone] Allergies Active Allergy Reactions Criticality Noted Date Comments Penicillins Anaphylaxis High 07/31/2015 Sulfamethoxazole-Trimethoprim Anaphylaxis High 07/30 Medications nitroglycerin (NITROSTAT) 0.4 mg Tablet, SublingualIndicatio ns:History of CA (myocardial infarction) Place 1 Tablet (0.4 mg) under tongue every 5 minutes as needed for Chest Pain. 25 Tablet 07/05/19 24 Active Additional Information Patient not taking.Reported on 08/14/2023 ondansetron (ZOFRAN ODT) 8 mg Tablet, Rapid DissolveIndications :Nausea Dissolve 1 tablet on top of tongue then swallow with saliva every 8 hours as needed for nausea or vomiting 30 Tablet 08/02/19 24 Active promethazine-dextro methorphan (PHENERGAN-DM) 6.25-15 mg/5 mL syrupIndications:Co ugh, unspecified type Take 5 mL by mouth every 4 hours as needed for Cough. 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 It appears to be a greater than 3 cm defect in the epigastric area. No written report available at this time Cigarette dependence 07/31/2015 Encounters Date Type Department Care Team Description 02/09/2025 External Device Data [facility] ABSTRACTION Provider, Abstract 01/26/2025 External Device Data [facility] ABSTRACTION Provider, Abstract 01/19/2025 External Device Data [facility] ABSTRACTION Provider, Abstract 12/29/2024 External Device Data [facility] ABSTRACTION Provider, Abstract 12/26/[address] [phone] Matthew Ashby MD Acute costochondritis 12/01/2024 External Device Data [facility] ABSTRACTION Provider, Abstract from Last 3 Months Immunizations Immunization Administration Dates Next Due (PREVNAR 20)(6 WKS UP) PNEUM OCOCCAL CONJUGATE VACCINE 20-VALENT (PCV20), POLYSACCHARIDE IHL217 CONJUGATE, ADJUVANT 0.5 ML (PF) IM 08/02/2023 Social History Tobacco Use Types Packs/Day Years Used Date Smoking Tobacco: Every Day Cigarettes 1 36.8 Started: 1988 Smokeless Tobacco: Never Tobacco Cessation:Ready to Q uit: Not Asked; Counseling Given: Not Answered Alcohol Use Standard Drinks/Week Comments Yes 0 (1 standard drink = 0.6 oz pur e alcohol) Feeling Safe Answer Date Recorded Are you in a relationship wi th someone who hurts you emotionally and/or physically? No 06/27/2023 Comments No Sex and Gender Information Value Date Recorded Sex Assigned at Not on file Legal Sex Female 3:16 AM SPOT WELDER LINE Gender Identity Not on file Sexual Orientation Not on file Last Filed Vital Signs Vital Sign Reading Time Taken Comments Blood Pressure 144/90 04/10/2024 1:59 PM SPOT WELDER LINE Pulse 95 04/10/2024 1:59 PM SPOT WELDER LINE Temperature 36.8 C (98.2 F) 04/10/2024 1:59 PM SPOT WELDER LINE Respiratory Rate 18 04/10/2024 1:59 PM SPOT WELDER LINE Oxygen Saturation 98% 04/10/2024 1:59 PM SPOT WELDER LINE Inhaled Oxygen Concentration - - Weight 83.6 kg (184 lb 3.2 oz) 04/10/2024 1:59 P M SPOT WELDER LINE Height 170.2 cm (5' 7 ) 04/10/2024 1:59 PM SPOT WELDER LINE Body Mass Index 28.85 04/10/2024 1:59 PM SPOT WELDER LINE Plan of Treatment Health Maintenance Due Date Last Done Comments Pre-Diabetes and Diabetes Screening 1970 DTAP/TDAP/TD VACCINES (1 - Tdap) 1989 HEPATITIS B VACCINES (1 of 3 - 19+ 3-dose series) 06/14 Preventative Visit-Managed Medicaid 1989 BREAST CANCER SCREENING 2010 COLORECTAL SCREENING 07/11/2015 Colorectal Cancer Screening 07/11/2015 FIT-DNA Q 3 years 07/11/2015 FIT/FOBT Q 1 year 07/11/2015 Flex Sig/CT Colonography Q 5 years 07/11/2015 Lung Cancer Screening 2020 ZOSTER VACCINE (1 of 2) 2020 INFLUENZA VACCINE (#1) 2024 Goals Goal Patient Goal Type Associated Problems Recent Progress Patient-Stated? Author HYPERTENSIO N CARE PLAN GOAL Care Plan ERAN MYC HYPERTENSION CARE PLAN PROBLEM No Matthew Ashby MD Medical Devices Implanted Type Area Biostatistics Teacher Device Identifier Shelf Expiration Date Model / Serial / Lot Mesh Ventralex 3.2in Lg Circ [id number] - [id number] Implanted:Qty: 1 on 08/11/2015 by Connor Menchaca MD Mesh N/A: Abdomen CR BARD- [employer] 03/12/2017 [id number] / / [id number] Additional Health Concerns Active Problems Noted Date Diagnosed Date ERAN MYC HYPERTENSION CARE PLAN PROBLEM 4 Insurance [facility] [id number] Care Teams Commercial Loan Assistant Relationship Specialty Start Date End Date Matthew Ashby MD [address] [place] [phone] PCP - General Family Practice 07/05/23
--- NOTE | 2025-02-10 22:48 | ED.C_ITS ---
HPI - Psych 2 General: Chief Complaint: Psychiatric Symptoms Stated Complaint: MHE SI Time Seen by Provider: 02/10/25 22:26 History of Present Illness: Patient is a pleasant 54-year-old female with history of depression, and previous suicide attempt, with last psychiatric admission 20 years ago, presents to the ED with severe depression. She states she just wants to . She does not have a plan. She is not on routine medications. She is stressed out and sad. Denies any drug or alcohol use. Associated symptoms: Reports depression and suicidal ideation Related Data Home Medications ?Medication ?Instructions ?Recorded ?Confirmed clindamycin HCl 300 mg capsule 300 mg PO TID 02/11/25 02/11/25 ibuprofen 200 mg tablet (Advil) 800 mg PO Q6H PRN Feve r Or Pain 02/11/25 02/11/25 Allergies Allergy/AdvReac Type Severity Reaction Status Date / Time cephalexin (From Keflex) Allergy Unknown Verified 02/10/25 22:33 doxycycline Allergy ALGY-Hives Verified 02/10/25 22:33 Penicillins Allergy ALGY-Anaphy Verified 02/10/25 22:33 laxis Sulfa (Sulfonamide Allergy ALGY-Anaphy Verified 02/10/25 22:33 Antibiotics) laxis sulfamethoxazole (From Allergy Unknown Verified 02/10/25 22:33 Bactrim) trimethoprim (From Bactrim) Allergy Unknown Verified 02/10/25 22:33 Review of Systems 2 Const: Denies: fever(s) or chills Card: Denies: chest pain Resp: Denies: dyspnea GI: Denies: abdominal pain : Denies: dysuria, urinary frequency or urinary urgency Musc: Denies: neck pain or back pain Skin/Breast: Denies: rash Psych: Reports: anxiety, depression and suicidal ideation PFSH ED 2 PFSH: Medical History (Updated 02/10/25 @ 22:57 by LOBO Kirk) HTN (hypertension) Psychiatric care Social History Smoking and tobacco/nicotine status: current every day tobacco/nicotine user Physical Exam 2 Const: GENERAL APPEARANCE: cooperative ORIENTATION/CONSCIOUSNESS: Yes awake, Yes oriented to person, Yes oriented to place and Yes oriented to time HENMT: COMMON NORMALS: normocephalic, atraumatic and hearing grossly normal bilaterally HEAD & SCALP: normocephalic and atraumatic Chest: OTHER: Under left breast with Bhumi. Resp: COMMON NORMALS: normal respiratory effort, No retractions, No use of accessory muscles and clear to auscultation bilaterally AUSCULTATION: clear to auscultation bilaterally Cardio: COMMON NORMALS: regular rate, regular rhythm and No murmurs present (Cardio) RATE: regular rate RHYTHM: regular rhythm GI: COMMON NORMALS: Normal to inspection, nondistended, normoactive bowel sounds present and Soft to palpation AUSCULTATION: Yes normoactive bowel sounds PALPATION: Yes Soft to palpation Extremity: COMMON NORMALS: capillary refill normal, no clubbing, cyanosis or edema, no calf tenderness and no pedal edema NARRATIVE EXTREMITY EXAM: Left proximal thumb with circular laceration, healing, no surrounding redness. Neuro: SENSORIUM/ORIENTATION: Yes oriented to person, Yes oriented to place and Yes oriented to time Psych: APPEARANCE: Yes unkempt and Yes disheveled MOOD & AFFECT: Yes depressed mood, Yes anxious and Yes sad THOUGHT CONTENT: Yes Suicidality present Skin: COMMON NORMALS: no rashes or lesions noted GENERAL SKIN EXAM: no rashes or lesions noted Course 2 Vital Signs: Vital signs: Vital Signs Temperature 97.6 F 02/10/25 22:29 Pulse Rate 64 02/11/25 05:30 Respiratory Rate 14 02/11/25 05:30 Blood Pressure 103/57 02/11/25 05:30 Pulse Oximetry 95 02/11/25 05:30 Oxygen Delivery Me thod Room Air 02/11/25 05:30 MDM - Psych Medical Decision Making Patient is 54-year-old female with sadness, depression, admitting suicide ideation. She will need nystatin for under her left breast. Patient will have to wait until the morning for psychiatric evaluation. When I check with patient regarding her anxiety, and Zyprexa, she stated that she does not tolerate this, and requested Ativan. I as well as added clonidine for her hypertension. Medical Records I reviewed the patient's medical records. Lab Data I reviewed the patient's lab results. 02/10/25 22:57 02/10/25 22:57 Laboratory Results WBC 9.71 10^3/uL (3.29-11.43) 02/10/25 22:57 RBC 5.20 10^6/uL (3.85-5.65) 02/10/25 22:57 Hgb 14.60 g/dL (11.27-16.99) 02/10/25 22:57 Hct 45.8 % (36-47) 02/10/25 22:57 MCV 88.1 fl (85-98) 02/10/25 22:57 MCH 28.1 pg (27-33) 02/10/25 22:57 MCHC 31.9 g/dL (30-55) 02/10/25 22:57 RDW 15.3 % (12.1-15.1) H 02/10/25 22:57 Plt Count 297 10^3/cmm (157-399) 02/10/25 22:57 MPV 10.1 fL (7.4-10.4) 02/10/25 22:57 Neut % (Auto) 57.2 % 02/10/25 22:57 Lymph % (Auto) 34.4 % 02/10/25 22:57 [place] % (Auto) 6.0 % 02/10/25 22:57 Eos % (Auto) 1.3 % 02/10/25 22:57 Baso % (Auto) 0.7 % 02/10/25 22:57 Neut # (Auto) 5.55 10^3/uL (1.8-7.7) 02/10/25 22:57 Lymph # (Auto) 3.3 10^3/uL (0.8-4.8) 02/10/25 22:57 [place] # (Auto) 0.6 10^3/uL (0.2-0.9) 02/10/25 22:57 Eos # (Auto) 0.1 10^3/uL (0.0-0.8) 02/10/25 22:57 Baso # (Auto) 0.1 10^3/uL (0.0-0.1) 02/10/25 22:57 Nucleated RBC % (auto) 0 % 02/10/25 22:57 Nucleated RBCs # 0.0 /100WBC 02/10/25 22:57 Sodium 141 mmol/L (136-145) 02/10/25 22:57 Potassium 3.7 mmol/L (3.5-5.1) 02/10/25 22:57 Chloride 103 mmol/L (98-107) 02/10/25 22:57 Carbon Dioxide 24 mmol/L (22-29) 02/10/25 22:57 Anion Gap 17.7 (5-19) 02/10/25 22:57 BUN 16 mg/dL (6-20) 02/10/25 22:57 Creatinine 0.6 mg/dL (0.5-0.9) 02/10/25 22:57 GFR Calculation 104.2 mL/min (90-130) 02/10/25 22:57 Glucose 116 mg/dL (65-115) H 02/10/25 22:57 Calculated Osmolality 294 mOsm/kg (285-295) 02/10/25 22:57 Calcium 9.4 mg/dL (8.5-10.5) 02/10/25 22:57 Total Bilirubin 0.2 mg/dL (0.15-1.2) 02/10/25 22:57 AST 15 U/L (0-32) 02/10/25 22:57 ALT 14 U/L (0-33) 02/10/25 22:57 Alkaline Phosphatase 98 U/L (35-105) 02/10/25 22:57 Creatine Kinase 107 U/L (26-192) 02/10/25 22:57 Total Protein 7.8 g/dL (6.6-8.7) 02/10/25 22:57 Albumin 4.4 g/dL (3.5-5.2) 02/10/25 22:57 Globulin 3.4 g/dL (1.3-4.6) 02/10/25 22:57 TSH 1.15 uIU/mL (0.27-4.20) 02/10/25 22:57 Urine Color Yellow (Yellow) 02/10/25 23:34 Urine Appearance Clear (CLEAR) 02/10/25 23:34 Urine pH 6.0 (5-7) 02/10/25 23:34 Ur Specific [place] 1.026 (1.005-1.030) 02/10/25 23:34 Urine Protein Negative (Negative) 02/10/25 23:34 Urine Glucose (UA) Negative (Normal) 02/10/25 23:34 Urine Ketones Negative (Negative) 02/10/25 23:34 Urine Blood 2+ (Negative) A 02/10/25 23:34 Urine Nitrate Negative (Negative) 02/10/25 23:34 Urine Bilirubin Negative (Negative) 02/10/25 23:34 Urine Urobilinogen 1.0 mg/dL (Negative) 02/10/25 23:34 Ur Leukocyte Esterase Trace (Negative) A 02/10/25 23:34 Urine RBC 11-20 /hpf (0-2) H 02/10/25 23:34 Urine WBC 6-10 /hpf (0-5) 02/10/25 23:34 Ur Squamous Epith Cells 6-10 /hpf (0-5) 02/10/25 23:34 Amorphous Sediment Not Reportable 02/10/25 23:34 Urine Bacteria None seen /hpf (NONE) 02/10/25 23:34 Hyaline Casts 0-4 /lpf H 02/10/25 23:34 Salicylates < 0.3 mg/dL (3-10) L 02/10/25 22:57 Urine Opiates Screen Negative ng/mL (Negative) 02/10/25 23:34 Acetaminophen < 5.0 ug/mL (10-30) L 02/10/25 22:57 Ur Barbiturates Screen Negative ng/mL (Negative) 02/10/25 23:34 Ur Phencyclidine Scrn Negative ng/mL (Negative) 02/10/25 23:34 Ur Amphetamines Screen Positive ng/mL (Negative) H 02/10/25 23:34 U Benzodiazepines Scrn Negative ng/mL (Negative) 02/10/25 23:34 Urine Cocaine Screen Negative ng/mL (Negative) 02/10/25 23:34 U Marijuana (THC) Screen Positive ng/mL (Negative) H 02/10/25 23:34 Ethyl Alcohol < 10 mg/dL (0-10) 02/10/25 22:57 No radiology studies performed this visit Discharge Plan Discharge Patient Disposition: Xfer Psychiatric Hosp Clinical Impression: Suicidal ideation, Candidiasis of breast Condition: Stable Referrals: Matthew Ashby MD [Primary Care Provider, Family Practice] Discharge Diet: Usual diet Discharge Activity: Resume usual activity Patient Instructions: Depression (ED), Help Prevent Suicide (ED) Print Language: Hebrew Coding Level of Care Code ED Supervisor [place] for Rafa Cantu
[2025-02-10 23:19] LABS: Hematocrit 45.8 % (36-47); Hemoglobin 14.60 g/dL (11.27-16.99); Mean Corpuscular HGB Conc 31.9 g/dL (30-55); Mean Corpuscular Hemoglobin 28.1 pg (27-33); Mean Corpuscular Volume 88.1 fl (85-98); Nucleated Red Blood Cells % 0 %; Platelet Count 297 10^3/cmm (157-399); Red Blood Count 5.20 10^6/uL (3.85-5.65); White Blood Count 9.71 10^3/uL (3.29-11.43)
[2025-02-10 23:44] LABS: Acetaminophen < 5.0 ug/mL (10-30); Alanine Aminotransferase 14 U/L (0-33); Albumin Level 4.4 g/dL (3.5-5.2); Alcohol Level < 10 mg/dL (0-10); Alkaline Phosphatase 98 U/L (35-105); Anion Gap 17.7 (5-19); Aspartate Amino Transferase 15 U/L (0-32); Blood Urea Nitrogen 16 mg/dL (6-20); Calcium 9.4 mg/dL (8.5-10.5); Carbon Dioxide 24 mmol/L (22-29); Chloride 103 mmol/L (98-107); Creatinine Clr Calc Pharmacy 111.4775; Globulin 3.4 g/dL (1.3-4.6); Glucose 116 mg/dL (65-115); Osmolality Calculated 294 mOsm/kg (285-295); Potassium 3.7 mmol/L (3.5-5.1); Salicylate < 0.3 mg/dL (3-10); Sodium 141 mmol/L (136-145); Thyroid Stimulating Hormone 1.15 uIU/mL (0.27-4.20); Total Protein 7.8 g/dL (6.6-8.7)
--- NOTE | 2025-02-10 23:44 | ECG_ITS ---
Amprius Test Date: 2025-02-11 Pat Name: Tiffany Bragg Department: Room: Gender: Female [employer] Developer: : 1970 Requested By: Delmi Pérez Order Number: [id number] Nila MD: Moustapha Howell M.D. Measurements Intervals [place] Rate: 70 P: 39 AL: 168 QRS: -2 QRSD: 78 T: 38 QT: 420 QTc: 455 Interpretive Statements SINUS RHYTHM POSSIBLE ANTERIOR MYOCARDIAL INFARCTION , PROBABLY OLD [30 ms Q WAVE IN V3/V4, OR R < 0.2 mV IN V4] Compared to ECG 03/03/2024 09:46:37 No significant changes Electronically Signed On 02-13-2025 20:34:01 CDT by Moustapha Howell M.D. [id number]
[2025-02-11 00:05] VITALS: BP 165/72
[2025-02-11 00:07] LABS: PCP Screen Urine Negative (Negative)
[2025-02-11 00:10] LABS: Add Urine Microscopic? YES; Glucose Urine UA Negative (Normal); Nitrate Urine Negative (Negative); Specific Gravity, Urine 1.026 (1.005-1.030)
[2025-02-11 00:32] VITALS: BP 142/81; PULSE 75; O2SAT 97
[2025-02-11 05:30] VITALS: BP 103/57; PULSE 64; RESP 14; O2SAT 95
--- NOTE | 2025-02-11 09:25 | PC.NURSE ---
Pt was delivered breakfast tray
[2025-02-11 20:40] LABS: Respiratory Syncytial Virus Ce NEGATIVE (Negative); SARS-CoV-2 PCR NEGATIVE (Negative)
[2025-02-11 20:54] VITALS: BP 166/78; PULSE 66; O2SAT 98
== END 2025-02-11 20:54 ==
PROVIDERS: Emergency Provider Physician Assistant; PCP Family Medicine
DX: R45.851 Suicidal ideations (principal); B37.89 Other sites of candidiasis; Z72.0 Tobacco use; I10 Essential (primary) hypertension
CPT/HCPCS: 36415; 80053; 80306; 80307; 81001; 82550; 84443; 85025; 87086; 87637; 93005; 99285; J9999

== ENCOUNTER 2025-03-24 11:24 | Inpatient (IN) | payer SELFPAY ==
[2025-03-24 11:26] VITALS: BP 87/62; PULSE 86; RESP 20; TEMP 36.6; O2SAT 98
--- NOTE | 2025-03-24 11:29 | W.ED.PSYCHS ---
HPI - Psych General: Chief Complaint: Psychiatric Symptoms Stated Complaint: anxiety/SI Source: patient and EMS Mode of arrival: EMS Limitations: no limitations History of Present Illness: 54-year-old female states that she had an anxiety attack this morning states she has had a lot of life stressors and she had had suicidal ideation. Patient stated that she was going to take all of her pills was her plan. She states she still feels anxious but having some improvement to her SI still feels very depressed and stressed. Associated symptoms: Reports suicidal ideation Related Data Home Medications ?Medication ?Instructions ?Recorded ?Confirmed clindamycin HCl 300 mg capsule 300 mg PO TID 02/11/25 03/24/25 ibuprofen 200 mg tablet (Advil) 800 mg PO Q6H PRN Fever Or Pain 02/11/25 03/24/25 Allergies Allergy/AdvReac Type Severity Reaction Status Date / Time cephalexin (From Keflex) Allergy Unknown Verified 02/10/25 22:33 doxycycline Allergy ALGY-Hives Verified 02/10/25 22:33 Penicillins Allergy ALGY-Anaphy Verified 02/10/25 22:33 laxis Sulfa (Sulfonamide Allergy ALGY-Anaphy Verified 02/10/25 22:33 Antibiotics) laxis sulfamethoxazole (From Allergy Unknown Verified 02/10/25 22:33 Bactrim) trimethoprim (From Bactrim) Allergy Unknown Verified 02/10/25 22:33 Review of Systems Psych: Reports: suicidal ideation [facility] PFSH: Medical History HTN (hypertension) Psychiatric care Social History Smoking and tobacco/nicotine status: current every day tobacco/nicotine user Physical Exam Const: COMMON NORMALS: no acute distress, patient oriented x3 and healthy appearing HENMT: COMMON NORMALS: normocephalic and atraumatic HEAD & SCALP: normocephalic and atraumatic Neck/C-Spine: COMMON NORMALS: full ROM and supple Chest: COMMONS NORMALS: normal inspection of the chest Resp: COMMON NORMALS: normal respiratory effort Cardio: COMMON NORMALS: regular rate RATE: regular rate Extremity: COMMON NORMALS: normal to inspection and full ROM Neuro: COMMON NORMALS: patient oriented x3, moves all extremities and no focal motor deficits Psych: COMMON NORMALS: mental status grossly normal, Normal thought process present and cooperative THOUGHT PROCESS: Normal thought process present THOUGHT CONTENT: Yes Suicidality present Skin: COMMON NORMALS: no rashes or lesions noted and no wounds GENERAL SKIN EXAM: no rashes or lesions noted Course Vital Signs: Vital signs: Vital Signs Temperature 97.9 F 03/24/25 11:26 Pulse Rate 86 03/24/25 11:26 Respiratory Rate 20 H 03/24/25 11:26 Blood Pressure 124/82 03/24/25 12:06 Pulse Oximetry 98 03/24/25 11:26 MDM - Psych Medical Decision Making 54-year-old female presented here with suicidal ideations patient's been medically cleared here has normal vitals blood work showed no significant abnormality she is stable for admission to the psychiatric unit did speak to Dr. Porter and will admit Medical Records I reviewed the patient's medical records. Lab Data I reviewed the patient's lab results. 03/24/25 12:12 03/24/25 12:12 Laboratory Results WBC 9.94 10^3/uL (3.29-11.43) 03/24/25 12:12 RBC 4.64 10^6/uL (3.85-5.65) 03/24/25 12:12 Hgb 12.90 g/dL (11.27-16.99) 03/24/25 12:12 Hct 40.2 % (36-47) 03/24/25 12:12 MCV 86.6 fl (85-98) 03/24/25 12:12 MCH 27.8 pg (27-33) 03/24/25 12:12 MCHC 32.1 g/dL (30-55) 03/24/25 12:12 RDW 15.3 % (12.1-15.1) H 03/24/25 12:12 Plt Count 277 10^3/cmm (157-399) 03/24/25 12:12 MPV 10.1 fL (7.4-10.4) 03/24/25 12:12 Neut % (Auto) 67.3 % 03/24/25 12:12 Lymph % (Auto) 25.2 % 03/24/25 12:12 [place] % (Auto) 5.3 % 03/24/25 12:12 Eos % (Auto) 1.1 % 03/24/25 12:12 Baso % (Auto) 0.8 % 03/24/25 12:12 Neut # (Auto) 6.69 10^3/uL (1.8-7.7) 03/24/25 12:12 Lymph # (Auto) 2.5 10^3/uL (0.8-4.8) 03/24/25 12:12 [place] # (Auto) 0.5 10^3/uL (0.2-0.9) 03/24/25 12:12 Eos # (Auto) 0.1 10^3/uL (0.0-0.8) 03/24/25 12:12 Baso # (Auto) 0.1 10^3/uL (0.0-0.1) 03/24/25 12:12 Nucleated RBC % (auto) 0 % 03/24/25 12:12 Nucleated RBCs # 0.0 /100WBC 03/24/25 12:12 Sodium 143 mmol/L (136-145) 03/24/25 12:12 Potassium 3.8 mmol/L (3.5-5.1) 03/24/25 12:12 Carbon Dioxide 25 mmol/L (22-29) 03/24/25 12:12 Anion Gap 13.8 (5-19) 03/24/25 12:12 BUN 17 mg/dL (6-20) 03/24/25 12:12 Creatinine 0.7 mg/dL (0.5-0.9) 03/24/25 12:12 Glucose 101 mg/dL (65-115) 03/24/25 12:12 Calcium 9.3 mg/dL (8.5-10.5) 03/24/25 12:12 Total Bilirubin 0.2 mg/dL (0.15-1.2) 03/24/25 12:12 AST 27 U/L (0-32) 03/24/25 12:12 ALT 12 U/L (0-33) 03/24/25 12:12 Alkaline Phosphatase 80 U/L (35-105) 03/24/25 12:12 Total Protein 6.7 g/dL (6.6-8.7) 03/24/25 12:12 Albumin 4.0 g/dL (3.5-5.2) 03/24/25 12:12 Globulin 2.7 g/dL (1.3-4.6) 03/24/25 12:12 All radiology interpretation(s) finalized by discharge Discharge Plan Discharge Condition: Stable Prescriptions: No Action clindamycin HCl 300 mg Capsule 300 mg PO TID ibuprofen [Advil] 200 mg Tablet 800 mg PO Q6H PRN (Reason: Fever Or Pain) Referrals: Matthew Ashby MD [Primary Care Provider, Family Practice] Print Language: Tuvaluan Coding Level of Care Code 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
--- NOTE | 2025-03-24 11:35 | PC.NURSE ---
PT changed into paper scrubs and belongings removed
--- NOTE | 2025-03-24 11:40 | PC.NURSE ---
Involuntary 96 hour hold rights read and reviewed with patient. Patient verbalized understandings and copy of rights given to patient.
[2025-03-24 12:06] VITALS: BP 124/82
[2025-03-24 12:24] LABS: Hematocrit 40.2 % (36-47); Hemoglobin 12.90 g/dL (11.27-16.99); Mean Corpuscular HGB Conc 32.1 g/dL (30-55); Mean Corpuscular Hemoglobin 27.8 pg (27-33); Mean Corpuscular Volume 86.6 fl (85-98); Nucleated Red Blood Cells % 0 %; Platelet Count 277 10^3/cmm (157-399); Red Blood Count 4.64 10^6/uL (3.85-5.65); White Blood Count 9.94 10^3/uL (3.29-11.43)
[2025-03-24 12:52] LABS: Alanine Aminotransferase 12 U/L (0-33); Albumin Level 4.0 g/dL (3.5-5.2); Alkaline Phosphatase 80 U/L (35-105); Anion Gap 13.8 (5-19); Aspartate Amino Transferase 27 U/L (0-32); Blood Urea Nitrogen 17 mg/dL (6-20); Calcium 9.3 mg/dL (8.5-10.5); Carbon Dioxide 25 mmol/L (22-29); Chloride 108 mmol/L (98-107); Globulin 2.7 g/dL (1.3-4.6); Glucose 101 mg/dL (65-115); Osmolality Calculated 298 mOsm/kg (285-295); Potassium 3.8 mmol/L (3.5-5.1); Sodium 143 mmol/L (136-145); Total Protein 6.7 g/dL (6.6-8.7)
[2025-03-24 13:01] LABS: Acetaminophen < 5.0 ug/mL (10-30); Alcohol Level < 10 mg/dL (0-10); Salicylate < 0.3 mg/dL (3-10)
[2025-03-24 16:56] VITALS: BP 140/75; PULSE 73; RESP 16; TEMP 36.8; O2SAT 96
[2025-03-24 17:02] LABS: PCP Screen Urine Negative (Negative)
--- NOTE | 2025-03-24 17:36 | PC.ADMIT ---
RR! [address] Admission Note: The patient,Tiffany Bragg,54 y/o, was given written information regarding hospital policies, unit procedures and contact persons. Patient's smoking status: current every day smoker. Vital Signs - 8 hr 03/24/25 11:26 03/24/25 12:06 03/24/25 16:56 Temperature 97.9 F 98.2 F Pulse Rate 86 73 Respiratory Rate 20 H 16 Blood Pressure 87/62 124/82 140/75 Pulse Oximetry 98 96 Oxygen Delivery Method Room Air 03/24/25 17:00 Temperature Pulse Rate Respiratory Rate Blood Pressure Pulse Oximetry Oxygen Delivery Method Room Air Pt. came into ER anxiety and SI. Pt. placed on a 96 hr hold. Pt. is very irritable, flat, says she is just tired of life. Pt. said she is currently on probation for possesion of a controlled substance. Pt. has [facility] in [facility]) and says that is where she received drug or alcohol rehabilitation. Pt. has old scars on both quads from a suicide attempt about 25 years ago. Pt. was at [facility] in January of 2025. Pt. says she is being evicted from where she is living. The property has recently been sold and pt. says she woke up to a bulldozer getting ready to doze the house down.
[2025-03-24 20:21] VITALS: BP 122/77; PULSE 72; RESP 17; TEMP 36.7; O2SAT 99
[2025-03-24 23:54] LABS: HCG Qualitative Urine. Negative (Negative)
[2025-03-25 05:54] VITALS: BP 157/98; PULSE 77; RESP 18; TEMP 36.5; O2SAT 97
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
[2025-03-25 14:00] VITALS: BP 124/70; PULSE 84; RESP 16; TEMP 36.3; O2SAT 95
[2025-03-25 21:05] VITALS: BP 128/65; PULSE 56; RESP 16; TEMP 36.5; O2SAT 98
[2025-03-26 06:00] VITALS: RESP 14
--- NOTE | 2025-03-26 06:35 | PC.NURSE ---
pt asleep, vitals not done, resp 14
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
[2025-03-26 14:00] VITALS: BP 150/79; PULSE 71; RESP 16; TEMP 36.4; O2SAT 96
[2025-03-26 21:02] VITALS: BP 126/73; PULSE 65; RESP 19; TEMP 36.6; O2SAT 99
[2025-03-27 06:00] VITALS: RESP 16
--- NOTE | 2025-03-27 06:32 | PC.NURSE ---
vitals not done, pt asleep, nurse aware, resp 16
--- NOTE | 2025-03-27 12:15 | PC.NURSE ---
pt states she has court on saturday that will determine wether she goes to shelter or not. pt is aggitated do to staff inablity to let her know when she is getting out and what time. pt continoues to state it is a criminal trial and we are hindering her from getting her the stuf she needs to go to court. that we might as well keep her to saturday so they will switch when the trial.
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
[2025-03-27 14:00] VITALS: BP 141/81; PULSE 66; RESP 17; TEMP 36.3; O2SAT 99
[2025-03-27 19:35] VITALS: BP 134/76; PULSE 81; RESP 16; TEMP 36.4; O2SAT 96
[2025-03-28 06:00] VITALS: BP 103/69; PULSE 67; RESP 18; TEMP 36.8; O2SAT 97
[2025-03-28 14:00] VITALS: BP 117/60; PULSE 79; RESP 18; TEMP 36.3; O2SAT 95
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
[2025-03-28 15:28] VITALS: BP 117/60; PULSE 79; RESP 18; TEMP 36.3; O2SAT 95
== END 2025-03-28 17:33 | disposition home or self-care (01) | DRG 880 ==
LOC: ER 14:57 → NP 16:28
PROVIDERS: Admitting Provider Psychiatry & Neurology Psychiatry; Emergency Provider Emergency Medicine; PCP Family Medicine; Visit Provider Psychiatry & Neurology Psychiatry
DX: F41.9 Anxiety disorder, unspecified (principal); R45.851 Suicidal ideations; F15.20 Other stimulant dependence, uncomplicated; F32.A Depression, unspecified; F41.0 Panic disorder [episodic paroxysmal anxiety]; F17.210 Nicotine dependence, cigarettes, uncomplicated; F43.12 Post-traumatic stress disorder, chronic; F12.90 Cannabis use, unspecified, uncomplicated
CPT/HCPCS: 36415; 80053; 80306; 80307; 81025; 85025; 97150; 97165; 99285; J9999